=== PATIENT | female | born 2000 | race Caucasian/White ===

== ENCOUNTER 2021-02-19 20:42 | Emergency (ER) | payer OTHER ==
[~2021-02-19] VITALS: Ht 167.6 cm; Wt 61.7 kg
[2021-02-19] MEDS ORDERED: METHYLPREDNISOLONE SOD SUCC 125 MG/2ML VIAL INJ ONE (21:15)
[2021-02-19] MEDS ORDERED: DIPHENHYDRAMINE HCL 25 MG CAP PO ONE (21:15)
[2021-02-19] MEDS ORDERED: FAMOTIDINE 20 MG TAB PO ONE (21:15)
[2021-02-19] MEDS ORDERED: FAMOTIDINE 20 MG TAB ONE (21:22)
[2021-02-19] MEDS ORDERED: DIPHENHYDRAMINE HCL 25 MG CAP ONE (21:23)
== END 2021-02-19 22:05 | disposition home or self-care (01) ==
LOC: ER 21:14
DX: R21 Rash and other nonspecific skin eruption (principal); T78.1XXA Other adverse food reactions, not elsewhere classified, initial encounter
CPT/HCPCS: 99283; J2930